=== PATIENT | female | born 1960 | race Caucasian/White ===

== ENCOUNTER → 2017-06-21 | Outpatient (CLI) | payer OTHER ==
[2015-08-19 19:29] VITALS: BP 120/70
--- NOTE | 2017-06-21 08:43 | RAD ---
Cervical spine-three views Indication: Neck pain Findings: The craniocervical junction is intact. Prevertebral soft tissues are normal. There is no co rtical lucency or malalignment. Cervicothoracic junction is normal. There is disc space narrowing at C5-C6 and C6-C7. There is minimal disc space narrowing at C4-C5. Impression: Mild cervical spine degenerative changes as above without other acute abnormality. Reported By:
== END ==
LOC: RAD 08:13
PROVIDERS: ATTEND Nurse Practitioner Family
DX: M50.321 Other cervical disc degeneration at C4-C5 level (principal)
CPT/HCPCS: 72040